=== PATIENT | female | born 1965 | race Caucasian/White ===

== ENCOUNTER 2020-10-21 10:04 | Observation (INO) | payer BC ==
[2020-10-21 10:22] VITALS: TEMP 97.5
[2020-10-21] MEDS ORDERED: FUROSEMIDE 10 MG/ML 4 ML VIAL IV STA (10:40)
--- NOTE | 2020-10-21 10:50 | ED ---
General Adult HPI - General Chief complaint: Shortness of Breath Stated complaint: SOB/Fluid in Lungs Time Seen by Provider: 10/21/20 10:23 Source: patient Mode of arrival: ambulatory Limitations: no limitations - History of Present Illness Initial comments: 55-year-old female with history of ovarian cancer presenting to the emergency department with a chief complaint of shortness of breath. States she has a tumor in the omentum. States she is extremity shortness of breath secondary to fluid accumulation. States that she underwent thoracentesis about one month ago and is scheduled to have another one. States her oncologist is from [facility]. However, states that she does not want to go back to the facility and came here instead. states they do not want any CT imaging of the chest and the oncologist recommended 40 mg IV Lasix twice a day. Patient will also need thoracocentesis. states she's had elevated heart rate over the last several days and states this is typical for her when she is ready to undergo thoracocentesis. Patient denies any other complaints. She is scheduled for next chemotherapy treatment on October 26. - Related Data Home Medications Medication Instructions Recorded Confirmed ALPRAZolam [Xanax] 0.5 mg PO BID PRN 10/21/20 10/21/20 Cyclobenzaprine [Flexeril] 10 mg PO DAILY PRN 10/21/20 10/21/20 DULoxetine HCL [Cymbalta] 60 mg PO DAILY 10/21/20 10/21/20 HYDROcodone/IBUPROFEN 7.5-200 1 tab PO QID PRN 10/21/20 10/21/20 [Vicoprofen 7.5-200 mg] Insulin Detemir [Levemir Flextouch] 10 units SQ DAILY 10/21/20 10/21/20 Lisinopril [Prinivil] 10 mg PO DAILY 10/21/20 10/21/20 Metoclopramide [Reglan] 10 mg PO ACHS 10/21/20 10/21/20 OLANZapine ODT [ZyPREXA ZYDIS] 5 mg PO DAILY 10/21/20 10/21/20 hydroCHLOROthiazide [Hydrodiuril] 25 mg PO DAILY 10/21/20 10/21/20 metFORMIN HCL ER [Glucophage XR] 500 mg PO DAILY 10/21/20 10/21/20 polyethylene glycoL 3350 [Miralax] 17 gm PO DAILY 10/21/20 10/21/20 Allergies Allergy/AdvReac Type Severity Reaction Status Date / Time No Known Allergies Allergy Verified 10/21/20 11:53 Review of Systems ROS Statement: Those systems with pertinent positive or pertinent negative responses have been documented in the HPI. ROS Other: All systems not noted in ROS Statement are negative. Past Medical History Past Medical History: Cancer Additional Past Medical History / Comment(s): ovarian CA History of Any Multi-Drug Resistant Organisms: None Reported Past Surgical History: Appendectomy, Cholecystectomy, Hernia Repair, Hysterectomy Additional Past Surgical History / Comment(s): Pleurex drain, paracentesis, septoplasty Past Psychological History: Anxiety, Depression Smoking Status: Former smoker Past Alcohol Use History: None Reported Past Drug Use History: None Reported General Exam Limitations: no limitations General appearance: alert, in no apparent distress Head exam: Present: atraumatic, normocephalic, normal inspection Eye exam: Present: normal appearance, PERRL, EOMI Pupils: Present: normal accommodation ENT exam: Present: normal exam, normal oropharynx, mucous membranes moist Neck exam: Present: normal inspection, full ROM. Absent: tenderness, lymphadenopathy Respiratory exam: Present: decreased breath sounds. Absent: respiratory distress, wheezes, rales Cardiovascular Exam: Present: regular rate, normal rhythm, systolic murmur GI/Abdominal exam: Present: soft. Absent: distended, tenderness, guarding, rebound Extremities exam: Present: normal inspection, full ROM, normal capillary refill, pedal edema (+2 pitting edema bilaterally) Back exam: Present: normal inspection, full ROM Neurological exam: Present: alert, oriented X3 Psychiatric exam: Present: normal affect, normal mood Skin exam: Present: warm, dry, intact, normal color Course Vital Signs 10/21/20 10:18 Temperature 97.5 F L Pulse Rate 126 H Respiratory 18 Rate Blood Pressure 104/72 O2 Sat by Pulse 95 Oximetry Medical Decision Making - Medical Decision Making 55-year-old female with history of ovarian cancer presenting to the emergency department with a chief complaint of shortness of breath. On physical examination, patient has decreased lung sounds bilaterally. She is tachycardic on arrival. Bilateral lower extremity edema. Patient will be started on 40 mg IV Lasix per request of the oncologist. Laboratory work is relatively unremarkable. Chest x-ray reveals moderate bilateral pleural effusion. Primary congestion also noted. I attempted to call her oncologist, , but I was not able to get in contact. I left a voicemail with a call by phone number. I will admit the patient for thoracocentesis and further medical management. Case discussed with Dr. Russell Admitting physician is who was requested by the family. Oncology consult Pulmonary consult - Lab Data Result diagrams: 10/21/20 11:56 10/21/20 11:56 Lab Results 10/21/20 10/21/20 10/21/20 Range/Units 11:56 11:56 11:56 WBC 3.8 (3.8-10.6) k/uL RBC 4.76 (3.80-5.40) m/uL Hgb 13.6 (11.4-16.0) gm/dL Hct 40.9 (34.0-46.0) % MCV 85.8 (80.0-100.0) fL MCH 28.6 (25.0-35.0) pg MCHC 33.3 (31.0-37.0) g/dL RDW 15.7 H (11.5-15.5) % Plt Count 240 (150-450) k/uL MPV 7.6 Neutrophils % 51 % Lymphocytes % 25 % Monocytes % 20 % Eosinophils % 0 % Basophils % 0 % Neutrophils # 1.9 (1.3-7.7) k/uL Lymphocytes # 0.9 L (1.0-4.8) k/uL Monocytes # 0.8 (0-1.0) k/uL Eosinophils # 0.0 (0-0.7) k/uL Basophils # 0.0 (0-0.2) k/uL PT 11.1 (9.0-12.0) sec INR 1.1 (<1.2) APTT 23.3 (22.0-30.0) sec Sodium 129 L (137-145) mmol/L Potassium 3.7 (3.5-5.1) mmol/L Chloride 92 L (98-107) mmol/L Carbon Dioxide 31 H (22-30) mmol/L Anion Gap 6 mmol/L BUN 14 (7-17) mg/dL Creatinine 0.59 (0.52-1.04) mg/dL Est GFR (CKD-EPI)AfAm >90 (>60 ml/min/1.73 sqM) Est GFR (CKD-EPI)NonAf >90 (>60 ml/min/1.73 sqM) Glucose 135 H (74-99) mg/dL Calcium 8.5 (8.4-10.2) mg/dL Total Bilirubin 0.4 (0.2-1.3) mg/dL AST 30 (14-36) U/L ALT 15 (4-34) U/L Alkaline Phosphatase 69 (38-126) U/L Troponin I (0.000-0.034) ng/mL Total Protein 6.4 (6.3-8.2) g/dL Albumin 3.0 L (3.5-5.0) g/dL 10/21/20 Range/Units 11:56 WBC (3.8-10.6) k/uL RBC (3.80-5.40) m/uL Hgb (11.4-16.0) gm/dL Hct (34.0-46.0) % MCV (80.0-100.0) fL MCH (25.0-35.0) pg MCHC (31.0-37.0) g/dL RDW (11.5-15.5) % Plt Count (150-450) k/uL MPV Neutrophils % % Lymphocytes % % Monocytes % % Eosinophils % % Basophils % % Neutrophils # (1.3-7.7) k/uL Lymphocytes # (1.0-4.8) k/uL Monocytes # (0-1.0) k/uL Eosinophils # (0-0.7) k/uL Basophils # (0-0.2) k/uL PT (9.0-12.0) sec INR (<1.2) APTT (22.0-30.0) sec Sodium (137-145) mmol/L Potassium (3.5-5.1) mmol/L Chloride (98-107) mmol/L Carbon Dioxide (22-30) mmol/L Anion Gap mmol/L BUN (7-17) mg/dL Creatinine (0.52-1.04) mg/dL Est GFR (CKD-EPI)AfAm (>60 ml/min/1.73 sqM) Est GFR (CKD-EPI)NonAf (>60 ml/min/1.73 sqM) Glucose (74-99) mg/dL Calcium (8.4-10.2) mg/dL Total Bilirubin (0.2-1.3) mg/dL AST (14-36) U/L ALT (4-34) U/L Alkaline Phosphatase (38-126) U/L Troponin I <0.012 (0.000-0.034) ng/mL Total Protein (6.3-8.2) g/dL Albumin (3.5-5.0) g/dL Disposition Clinical Impression: Pleural effusion Disposition: ADMITTED IP TO THIS HOSP Condition: Fair Is patient prescribed a controlled substance at d/c from ED?: No Referrals: Jolene Brian DO [Primary Care Provider] - 1-2 days Time of Disposition: 13:14
--- NOTE | 2020-10-21 11:24 | XR ---
EXAMINATION TYPE: XR chest 2V DATE OF EXAM: 10/21/2020 COMPARISON: NONE HISTORY: History of ovarian cancer with shortness of breath TECHNIQUE: Frontal and lateral views of the chest are obtained. FINDINGS: Left internal jugular Mediport catheter terminates at cavoatrial junction. There are modera te size bilateral pleural effusions and central vascular congestion. The cardiac silhouette size is silhouetted by the effusions. The osseous structures are intact. IMPRESSION: Moderate-sized bilateral pleural effusions and mild to moderate central vascular congest ion.
[2020-10-21 12:21] LABS: Basophils % (A) 0 %; Eosinophils % (A) 0 %; HCT 40.9 % (34.0-46.0); HGB 13.6 gm/dL (11.4-16.0); Lymphocytes # (A) 0.9 k/uL (1.0-4.8); Lymphocytes % (A) 25 %; MCH 28.6 pg (25.0-35.0); MCHC 33.3 g/dL (31.0-37.0); MCV 85.8 fL (80.0-100.0); Mean Platelet Volume 7.6; Monocytes # (A) 0.8 k/uL (0-1.0); Monocytes % (A) 20 %; Neutrophils # (A) 1.9 k/uL (1.3-7.7); Neutrophils % (A) 51 %; Platelet Count 240 k/uL (150-450); RBC 4.76 m/uL (3.80-5.40); RDW 15.7 % (11.5-15.5); WBC 3.8 k/uL (3.8-10.6)
[2020-10-21 12:34] LABS: INR 1.1 (<1.2); Partial Thromboplastin Time 23.3 sec (22.0-30.0); Prothrombin Time 11.1 sec (9.0-12.0)
[2020-10-21 12:40] LABS: ALT 15 U/L (4-34); AST 30 U/L (14-36); African American GFR (CKD) >90 (>60 ml/min/1.73 sqM); Alkaline Phosphatase 69 U/L (38-126); Anion Gap 6 mmol/L; Blood Urea Nitrogen 14 mg/dL (7-17); Calcium 8.5 mg/dL (8.4-10.2); Carbon Dioxide 31 mmol/L (22-30); Chloride 92 mmol/L (98-107); Glucose 135 mg/dL (74-99); Non-African American GFR(CKD) >90 (>60 ml/min/1.73 sqM); Potassium 3.7 mmol/L (3.5-5.1); Sodium 129 mmol/L (137-145); Total Bilirubin 0.4 mg/dL (0.2-1.3); Total Protein 6.4 g/dL (6.3-8.2)
[2020-10-21] MEDS ORDERED: NALOXONE 0.4 MG/ML 1 ML VIAL IV PRN (13:10)
[2020-10-21 13:40] VITALS: PULSE 123; RESP 20
--- NOTE | 2020-10-21 14:40 | US ---
EXAMINATION TYPE: US chest DATE OF EXAM: 10/21/2020 COMPARISON: Chest x-ray earlier today. CLINICAL HISTORY: Markings for thoracentesis by pulmonary staff. Shortness of breath. Abnormal chest x-ray. TECHNIQUE: Targeted ultrasound of the posterior lower bilateral hemithoraces EXAM MEASUREMENTS: Right Pleural Effusion pocket size: 12.6 cm Right skin surface to fluid distance: 3.3 cm Left Pleural Effusion pocket size: 7.3 cm Left skin surface to fluid distance: 3.5 cm Right side marked for possible thoracentesis outside the dept. Left side marked for possible thoracentesis outside the dept. Pulmonologists are able to review the images in the patient?s EMR. Moderate size right greater than left pleural effusions confirmed on images saved. IMPRESSIONS: As above.
[2020-10-21 15:04] VITALS: BP 110/80
--- NOTE | 2020-10-21 15:10 | P.CNPUL ---
History of Present Illness Consult date: 10/21/20 Requesting physician: Meño Sinha Reason for consult: pleural effusion Chief complaint: Shortness of breath History of present illness: This is a 55-year-old female with history of ovarian cancer, patient has been on chemotherapy, and she normally sees oncology out of town, at [facility]. Patient developed bilateral pleural effusions and she had thoracentesis done on both sides over a month ago. Her last thoracentesis was about a month ago on the right side, and supposedly she had 1 L of fluid to drain. Patient has peritoneal metastasis, and she has recurrent ascites, and she has required placement of a catheter her abdomen for intermittent daily drainage of fluid and her abdomen. Patient came into the ER today complaining of increased shortness of breath over the last few weeks, she has been developing swelling in her lower extremities. And her chest x-ray showed bilateral pleural effusions, right more so than left. Considering the effusion, I was asked to see the patient on consultation. I saw the patient in the ER, reviewed ultrasound at bedside, and proceeded to a right-sided thoracentesis, and I was able to drain about 1650 mL of slightly serosanguineous fluid from the right pleural space. Reviewed the ultrasound on the left side, the fluid seems to be small, and she definitely does not need immediate thoracentesis, but this could be considered in the f uture. Patient received Lasix by the ER physician, reviewed her labs, they're basically unremarkable except for a low sodium of 129. Rest of her labs including CBC, renal profile, liver profile are all normal. Review of Systems Constitutional: Weakness fatigue, some weight loss. HEENT: Negative. Pulmonary: As noted in HPI mostly shortness of breath, no cough, no wheezing, no chest pain, no hemoptysis. Cardiac: Negative. Patient does complain of intermittent swelling in her lower extremities. GI: Intermittent episodes of dysphagia and symptoms of epigastric discomfort after eating. Genitourinary: Negative. Musko skeletal: Negative. Skin: Negative. Neurologic: Negative. Hematologic/oncologic history of ovarian cancer with abdominal metastasis. Omental involvement. Extremities: Negative. Psychiatric: Negative. Patient is known to have history of generalized anxiety disorder. Neurologic: Negative. ROS unobtainable: due to mental status Past Medical History Past Medical History: Cancer Additional Past Medical History / Comment(s): ovarian CA History of Any Multi-Drug Resistant Organisms: None Reported Past Surgical History: Appendectomy, Cholecystectomy, Hernia Repair, Hysterectomy Additional Past Surgical History / Comment(s): Pleurex drain, paracentesis, septoplasty Past Psychological History: Anxiety, Depression Smoking Status: Former smoker Past Alcohol Use History: None Reported Past Drug Use History: None Reported Medications and Allergies Home Medications Medication Instructions Recorded Confirmed Type ALPRAZolam [Xanax] 0.5 mg PO BID PRN 10/21/20 10/21/20 History Cyclobenzaprine [Flexeril] 10 mg PO DAILY PRN 10/21/20 10/21/20 History DULoxetine HCL [Cymbalta] 60 mg PO DAILY 10/21/20 10/21/20 History HYDROcodone/IBUPROFEN 7.5-200 1 tab PO QID PRN 10/21/20 10/21/20 History [Vicoprofen 7.5-200 mg] Insulin Detemir [Levemir Flextouch] 10 units SQ DAILY 10/21/20 10/21/20 History Lisinopril [Prinivil] 10 mg PO DAILY 10/21/20 10/21/20 History Metoclopramide [Reglan] 10 mg PO ACHS 10/21/20 10/21/20 History OLANZapine ODT [ZyPREXA ZYDIS] 5 mg PO DAILY 10/21/20 10/21/20 History hydroCHLOROthiazide [Hydrodiuril] 25 mg PO DAILY 10/21/20 10/21/20 History metFORMIN HCL ER [Glucophage XR] 500 mg PO DAILY 10/21/20 10/21/20 History polyethylene glycoL 3350 [Miralax] 17 gm PO DAILY 10/21/20 10/21/20 History Allergies Allergy/AdvReac Type Severity Reaction Status Date / Time No Known Allergies Allergy Verified 10/21/20 11:53 Physical Exam Vitals: Vital Signs Temp Pulse Resp BP Pulse Ox 10/21/20 13:30 123 H 20 125/84 96 10/21/20 12:30 122 H 20 115/67 97 10/21/20 10:18 97.5 F L 126 H 18 104/72 95 Intake and Output 10/20/20 10/21/20 10/21/20 22:59 06:59 14:59 Other: Weight 88.451 kg Physical Exam: Revealed 55-year-old female on 2 L nasal cannula, in no distress. She is noted to be a bit anxious. Head: Atraumatic, normocephalic. HEENT:[Neck is supple.] [No neck masses.] [No thyromegaly.] [No JVD.] Chest: Symmetrical chest expansion, dullness at the bases especially at the right base, diminished breath sounds at the bases. Cardiac Exam: Distant S1 and S2, tachycardic, no S3 gallop, no murmur. Abdomen: [Obese, Soft, nontender, no megaly, no rebound, no guarding, normal bowel sounds.] Peritoneal catheter noted in the right upper quadrant area. Extremities: [No clubbing, trace of bipedal edema, no cyanosis.] Good pulses bilaterally. Neurological Exam: [No focal neurologic deficit.] Alert and oriented 3. Psychiatric: Anxious mood, normal affect, and normal mental status examination. Skin: No rashes. Musculoskeletal: No deformities and no limitation in range of motion Results - Laboratory Findings CBC and BMP: 10/21/20 11:56 10/21/20 11:56 PT/INR, D-dimer PT 11.1 sec (9.0-12.0) 10/21/20 11:56 INR 1.1 (<1.2) 10/21/20 11:56 Abnormal lab findings: Abnormal Labs 10/21/20 10/21/20 11:56 11:56 RDW 15.7 H Lymphocytes # 0.9 L Sodium 129 L Chloride 92 L Carbon Dioxide 31 H Glucose 135 H Albumin 3.0 L - Diagnostic Findings Chest x-ray: image reviewed (Bilateral pleural effusions) Additional studies: Ultrasound of the chest showed bilateral pleural effusions right more so than left. Assessment and Plan Assessment: Impression: Bilateral pleural effusions secondary to metastatic ovarian cancer. Ascites secondary to metastatic ovarian cancer. History of ovarian cancer. Patient is on chemotherapy. Type 2 diabetes. History of depression. Generalized anxiety disorder. Benign essential hypertension. Recommendation: Right-sided thoracentesis was performed. 1650 mL of fluid was drained. Fluid was sent for different diagnostic studies Patient to be seen by oncology however as far as I'm concerned, this could also be done on outpatient basis. We'll clear the patient for discharge planning Follow-up with me on outpatient basis and the left pleural effusion could be addressed on outpatient basis. Again clear for discharge planning as far as I'm concerned. Time with Patient: Greater than 30
--- NOTE | 2020-10-21 15:10 | XR ---
EXAMINATION TYPE: XR chest 1V portable DATE OF EXAM: 10/21/2020 CLINICAL HISTORY: Post right-sided thoracentesis. TECHNIQUE: Single AP portable upright view of the chest is obtained. COMPARISON: Chest x-ray from earlier today FINDINGS: Stable Left internal jugular Mediport catheter . Improved right-sided pleural effusion afte r thoracentesis. No pneumothorax noted. Stable moderate-sized left pleural effusion. Chronic parenchy mal changes and mild to moderate central vascular congestion on current study. Osseous structures are intact. Cardiac silhouette size is stable and upper limits of normal. Persistent low lung volumes. IMPRESSION: Improved right-sided pleural effusion after thoracentesis. No pneumothorax. New developi ng mild to moderate central vascular congestion.
[2020-10-21] MEDS ORDERED: CYCLOBENZAPRINE 10 MG TAB PO PRN (15:49)
[2020-10-21] MEDS ORDERED: HYDROCODONE PO PRN (15:49)
[2020-10-21] MEDS ORDERED: ALPRAZolam 0.5 MG TAB PO PRN (15:49)
[2020-10-21] MEDS ORDERED: IBUPROFEN PO PRN (15:49)
--- NOTE | 2020-10-21 16:31 | P.HPIM ---
History of Present Illness H&P Date: 10/21/20 Chief Complaint: Shortness of breath History of presenting complaint: This is a pleasant 55-year-old patient who follows with family doctor Dr. Jolene Thompson. Chronic stable medical conditions include constipation due to decreased oral intake, diabetes patient has stopped taking her metformin because of decreased oral intake, depression and anxiety, hypertension, home oxygen 2 L from pulmonary effusion. Patient was diagnosed with ovarian cancer back in 2017. Has been receiving chemotherapy. Her oncologist is out of [facility]. The cancer spread intra-abdominally including the omentum. And does not known to have any outside spread. Patient's appetite is not good. Normally has a bowel movement everyday. Fever no chills. She has scheduled thoracentesis. Her oncologist is , out of [facility]. Patient has been getting more short of breath. And lower extremity edema. She is not too happy with the care at [facility] and also switching physicians here. Though not right away. Pulmonary was consulted for thoracentesis. They did earlier remove 1-1/2 L from the right side and another 5 50 mL were removed from the Thora-vent on the left side. Patient breathing is better. Patient's daughter at the bedside. No fever no chills. Review of systems: GEN.: Tired, decreased appetite EYES: None HEENT: None NECK: None RESPIRATORY: Shortness of breath. No cough CARDIOVASCULAR: None GASTROINTESTINAL: None GENITOURINARY: None MUSCULOSKELETAL: None LYMPHATICS: None HEMATOLOGICAL: None PSYCHIATRY: [Anxiety depression, controlled NEUROLOGICAL: None Past medical history to include: Constipation, diabetes type 2, off Glucophage, hypertension, anxiety depression Social history: Lives alone. Former smoker. No alcohol. Family history: Reviewed, noncontributory to presentation Physical examination: VITAL SIGNS: 97.5, 120, 18, 104/72, 95% room air GENERAL: BMI 31.5, reclining in bed, some shortness of breath. EYES: Pupils equal. Conjunctiva normal. HEENT: External appearance of nose and ears normal, oral cavity grossly normal. NECK: JVD not raised; masses not palpable. HEART: First and second heart sounds are normal; edema present. LUNGS:[ Respiratory rate increased and decreased breath sounds. ABDOMEN: Soft, nontender, liver spleen not palpable, no masses palpable. PSYCH: Alert and oriented x3; mood and affect anxiousl. NEUROLOGICAL: Cranial nerves grossly intact; no facial asymmetry, power and sensation grossly intact. LYMPHATICS: No lymph nodes palpable in the axilla and neck INVESTIGATIONS, reviewed in the clinical context: WBC 3.8 hemoglobin 13.6 platelets 240 sodium 129 potassium 3.7 creatinine 0.59 albumin 3 Chest x-ray film personally reviewed by me-bilateral pleural effusion Ultrasound chest: Moderate size right greater than left pleural effusion Assessment and plan: -Bilateral pleural effusion, right greater than left, acute on chronic, recurrent secondary to metastatic ovarian cancer, symptomatic. Patient is short of breath. Right thoracentesis 1.5 L, and 500 mL removed from the left effusion we are Thora-vent. Seen by pulmonary Dr. Durán -Metastatic ovarian cancer. Patient getting chemotherapy. Being followed by oncologist at [facility]. -Chronic medical debility from metastatic ovarian cancer -Anorexia from underlying malignancy -Anxiety depression otherwise specified Continue with Xanax, Cymbalta, Zyprexa -Diabetes mellitus type 2 Patient not taking her metformin because of decreased oral intake. Follow Accu- Cheks -Essential hypertension Prinivil Care was discussed with patient daughter the bedside. Home medications resumed. Patient feeling better. Possibly discharge later today remains stable. Patient follow-up with the family doctor and oncologist. Past Medical History Past Medical History: Cancer Additional Past Medical History / Comment(s): ovarian CA History of Any Multi-Drug Resistant Organisms: None Reported Past Surgical History: Appendectomy, Cholecystectomy, Hernia Repair, Hysterectomy Additional Past Surgical History / Comment(s): Pleurex drain, paracentesis, septoplasty Past Psychological History: Anxiety, Depression Smoking Status: Former smoker Past Alcohol Use History: None Reported Past Drug Use History: None Reported Medications and Allergies Home Medications Medication Instructions Recorded Confirmed Type ALPRAZolam [Xanax] 0.5 mg PO BID PRN 10/21/20 10/21/20 History Cyclobenzaprine [Flexeril] 10 mg PO DAILY PRN 10/21/20 10/21/20 History DULoxetine HCL [Cymbalta] 60 mg PO DAILY 10/21/20 10/21/20 History HYDROcodone/IBUPROFEN 7.5-200 1 tab PO QID PRN 10/21/20 10/21/20 History [Vicoprofen 7.5-200 mg] Insulin Detemir [Levemir Flextouch] 10 units SQ DAILY 10/21/20 10/21/20 History Lisinopril [Prinivil] 10 mg PO DAILY 10/21/20 10/21/20 History Metoclopramide [Reglan] 10 mg PO ACHS 10/21/20 10/21/20 History OLANZapine ODT [ZyPREXA ZYDIS] 5 mg PO DAILY 10/21/20 10/21/20 History hydroCHLOROthiazide [Hydrodiuril] 25 mg PO DAILY 10/21/20 10/21/20 History metFORMIN HCL ER [Glucophage XR] 500 mg PO DAILY 10/21/20 10/21/20 History polyethylene glycoL 3350 [Miralax] 17 gm PO DAILY 10/21/20 10/21/20 History Allergies Allergy/AdvReac Type Severity Reaction Status Date / Time No Known Allergies Allergy Verified 10/21/20 11:53 Physical Exam Vitals: Vital Signs Temp Pulse Resp BP Pulse Ox 10/21/20 15:00 123 H 20 110/80 96 10/21/20 13:30 123 H 20 125/84 96 10/21/20 12:30 122 H 20 115/67 97 10/21/20 10:18 97.5 F L 126 H 18 104/72 95 Intake and Output 10/21/20 10/21/20 10/21/20 06:59 14:59 22:59 Output Total 550 Balance -550 Output: Chest Tube Drainage 550 Pleural Catheter Right 550 Other: Weight 88.451 kg Results CBC & Chem 7: 10/21/20 11:56 10/21/20 11:56 Labs: Abnormal Lab Results - Last 24 Hours (Table) 10/21/20 10/21/20 Range/Units 11:56 11:56 RDW 15.7 H (11.5-15.5) % Lymphocytes # 0.9 L (1.0-4.8) k/uL Sodium 129 L (137-145) mmol/L Chloride 92 L (98-107) mmol/L Carbon Dioxide 31 H (22-30) mmol/L Glucose 135 H (74-99) mg/dL Albumin 3.0 L (3.5-5.0) g/dL
--- NOTE | 2020-10-21 16:44 | P.DS ---
Providers Date of admission: 10/21/20 13:25 Expected date of discharge: 10/21/20 Attending physician: Meño Sinha Consults: 10/21/20 13:11 Consult Physician Routine Consulting Provider: Mishel Durán Consult Reason/Comments: Pleural effusion Do you want consulting provider notified?: Yes Consult Physician Routine Consulting Provider: Aguila Guerrier Consult Reason/Comments: Ovarian cancer, pleural effusion Do you want consulting provider notified?: Yes Primary care physician: Jolene Brian [facility] Course: Chief Complaint: Shortness of breath History of presenting complaint: This is a pleasant 55-year-old patient who follows with family doctor Dr. Jolene Thompson. Chronic stable medical conditions include constipation due to decreased oral intake, diabetes patient has stopped taking her metformin because of decreased oral intake, depression and anxiety, hypertension, home oxygen 2 L from pulmonary effusion. Patient was diagnosed with ovarian cancer back in 2017. Has been receiving chemotherapy. Her oncologist is out of [facility]. The cancer spread intra-abdominally including the omentum. And does not known to have any outside spread. Patient's appetite is not good. Normally has a bowel movement everyday. Fever no chills. She has scheduled thoracentesis. Her oncologist is , out of [facility]. Patient has been getting more short of breath. And lower extremity edema. She is not too happy with the care at [facility] and also switching physicians here. Though not right away. Pulmonary was consulted for thoracentesis. They did earlier remove 1-1/2 L from the right side and another 5 50 mL were removed from the Thora-vent on the left side. Patient breathing is better. Patient's d aughter at the bedside. No fever no chills. Patient breathing much better. Keen to go home. She'll follow-up with her oncologist and PCP. Questions were answered Consultation: Dr. Durán from pulmonary Past medical history to include: Constipation, diabetes type 2, off Glucophage, hypertension, anxiety depression Social history: Lives alone. Former smoker. No alcohol. Family history: Reviewed, noncontributory to presentation Physical examination: VITAL SIGNS: 97.5, 120, 18, 104/72, 95% room air GENERAL: BMI 31.5, reclining in bed, some shortness of breath. EYES: Pupils equal. Conjunctiva normal. HEENT: External appearance of nose and ears normal, oral cavity grossly normal. NECK: JVD not raised; masses not palpable. HEART: First and second heart sounds are normal; edema present. LUNGS:[ Respiratory rate increased and decreased breath sounds. ABDOMEN: Soft, nontender, liver spleen not palpable, no masses palpable. PSYCH: Alert and oriented x3; mood and affect anxiousl. NEUROLOGICAL: Cranial nerves grossly intact; no facial asymmetry, power and sensation grossly intact. LYMPHATICS: No lymph nodes palpable in the axilla and neck INVESTIGATIONS, reviewed in the clinical context: WBC 3.8 hemoglobin 13.6 platelets 240 sodium 129 potassium 3.7 creatinine 0.59 albumin 3 Chest x-ray film personally reviewed by me-bilateral pleural effusion Ultrasound chest: Moderate size right greater than left pleural effusion Assessment and plan: -Bilateral pleural effusion, right greater than left, acute on chronic, recurrent secondary to metastatic ovarian cancer, symptomatic. Patient is short of breath. Right thoracentesis 1.5 L, and 500 mL removed from the left effusion we are Thora-vent. Seen by pulmonary Dr. Durán -Metastatic ovarian cancer. Patient getting chemotherapy. Being followed by oncologist at [facility]. -Chronic hypoxic respiratory failure, on 2 L of oxygen at home -Chronic medical debility from metastatic ovarian cancer -Anorexia from underlying malignancy -Anxiety depression otherwise specified Continue with Xanax, Cymbalta, Zyprexa -Diabetes mellitus type 2 Patient not taking her metformin because of decreased oral intake. Follow [facility]- [facility] -Essential hypertension Prinivil Disposition: Home Plan - Discharge Summary New Discharge Prescriptions: Continue metFORMIN HCL ER [Glucophage XR] 500 mg PO DAILY Lisinopril [Prinivil] 10 mg PO DAILY ALPRAZolam [Xanax] 0.5 mg PO BID PRN PRN Reason: Anxiety polyethylene glycoL 3350 [Miralax] 17 gm PO DAILY Insulin Detemir [Levemir Flextouch] 10 units SQ DAILY Metoclopramide [Reglan] 10 mg PO ACHS OLANZapine ODT [ZyPREXA Zydis] 5 mg PO DAILY hydroCHLOROthiazide [Hydrodiuril] 25 mg PO DAILY HYDROcodone/IBUPROFEN 7.5-200 [Vicoprofen 7.5-200 mg] 1 tab PO QID PRN PRN Reason: Pain Cyclobenzaprine [Flexeril] 10 mg PO DAILY PRN PRN Reason: Muscle Spasm DULoxetine HCL [Cymbalta] 60 mg PO DAILY Discharge Medication List ALPRAZolam [Xanax] 0.5 mg PO BID PRN 10/21/20 [History] Cyclobenzaprine [Flexeril] 10 mg PO DAILY PRN 10/21/20 [History] DULoxetine HCL [Cymbalta] 60 mg PO DAILY 10/21/20 [History] HYDROcodone/IBUPROFEN 7.5-200 [Vicoprofen 7.5-200 mg] 1 tab PO QID PRN 10/21/20 [History] Insulin Detemir [Levemir Flextouch] 10 units SQ DAILY 10/21/20 [History] Lisinopril [Prinivil] 10 mg PO DAILY 10/21/20 [History] Metoclopramide [Reglan] 10 mg PO ACHS 10/21/20 [History] OLANZapine ODT [ZyPREXA Zydis] 5 mg PO DAILY 10/21/20 [History] hydroCHLOROthiazide [Hydrodiuril] 25 mg PO DAILY 10/21/20 [History] metFORMIN HCL ER [Glucophage XR] 500 mg PO DAILY 10/21/20 [History] polyethylene glycoL 3350 [Miralax] 17 gm PO DAILY 10/21/20 [History] Follow up Appointment(s)/Referral(s): oncologistdr [Other] - 1 Week Jolene Brian DO [Primary Care Provider] - 1-2 days Activity/Diet/Wound Care/Special Instructions: Bilateral OVIDIO stockings
[2020-10-21] MEDS ORDERED: METOCLOPRAMIDE 10 MG TAB PO SCH (17:30)
[2020-10-21 18:04] LABS: Appearance,BF Cloudy; Nucleated Cells, Body Fluid 900 /uL; RBC, Body Fluid 9600 /uL
[2020-10-21 18:05] LABS: Mononuclear WBC,Body Fluid 93 %; Polynuclear WBC,Body Fluid 7 %; Total Cells Counted,Body Fluid 100
--- NOTE | 2020-10-21 20:04 | OP ---
OPERATIVE REPORT PROCEDURE: Right-sided thoracentesis. PREOPERATIVE DIAGNOSIS: Right pleural effusion, history of ovarian cancer, Meig's syndrome. POSTOP DIAGNOSIS: Right pleural effusion, history of ovarian cancer, Meig's syndrome. ANESTHESIA USED: 2 mL of 1% lidocaine. DESCRIPTION OF PROCEDURE: The patient was placed in a sitting upright position, the area of the fluid was localized with ultrasound guidance. The marking was done at the 8th intercostal space and tip of the scapula. Then, the area was prepared in a sterile fashion and drapes were applied. The area was locally anesthetized, and a 26-gauge needle was inserted at the same site and advanced into the pleural space until the fluid was localized. Then a small tiny incision was made, and a standard thoracentesis catheter was used, and a needle was inserted at the same site, advanced into the pleural space and as we entered the pleural space I believe there was kinking in the catheter, there was no drainage coming out from the catheter. Then, another set was used, the same site was used. The needle and catheter were advanced at the same site into the pleural space, fluid was obtained and as soon as the fluid was obtained, the catheter was advanced out of the needle into the pleural space and the needle was pulled out of the pleural space. Roughly 1650 mL of slightly serosanguineous fluid removed from the right pleural space. The procedure was well tolerated, no evidence of any immediate complications. Chest x- ray was ordered, and is pending at the time of dictation. MMODL / IJN: [id number] /
[2020-10-21] MEDS ORDERED: FUROSEMIDE 10 MG/ML 4 ML VIAL IV SCH (21:00)
[2020-10-22 03:30] LABS: Glucose, BF Source Pleural Fluid; Glucose, Body Fluid 91 mg/dL; LDH, Body Fluid Source Pleural Fluid; Total Protein, Body Fluid 2920 mg/dL
[2020-10-22] MEDS ORDERED: INSULIN DETEMIR (LEVEMIR) 100 UNIT/ML SYR SQ SCH (07:00)
[2020-10-22] MEDS ORDERED: polyethylene glycoL 3350 17 GM POWD.PACK PO SCH (09:00)
[2020-10-22] MEDS ORDERED: hydroCHLOROthiazide 25 MG TAB PO SCH (09:00)
[2020-10-22] MEDS ORDERED: OLANZapine ODT 5 MG TAB PO SCH (09:00)
[2020-10-22] MEDS ORDERED: metFORMIN 500 MG TAB PO SCH (09:00)
[2020-10-22] MEDS ORDERED: lisinopriL 10 MG TAB PO SCH (09:00)
[2020-10-22] MEDS ORDERED: DULoxetine HCL 60 MG CAPSULE.DR PO SCH (09:00)
== END 2020-10-21 18:27 | disposition home or self-care (01) ==
LOC: EC 10:04 → 5NMEDONC 13:25
PROVIDERS: ADMIT Hospitalist; ATTEND Hospitalist
DX: J90 Pleural effusion, not elsewhere classified (principal); C56.9 Malignant neoplasm of unspecified ovary; C78.6 Secondary malignant neoplasm of retroperitoneum and peritoneum; E11.9 Type 2 diabetes mellitus without complications; F41.1 Generalized anxiety disorder; I10 Essential (primary) hypertension; J96.11 Chronic respiratory failure with hypoxia; Z79.4 Long term (current) use of insulin; Z79.899 Other long term (current) drug therapy; Z85.43 Personal history of malignant neoplasm of ovary; Z87.891 Personal history of nicotine dependence; Z90.710 Acquired absence of both cervix and uterus
CPT/HCPCS: 32554; 99285; 96374; 96375; 36415; 93005; 87798 ×3; 87496; 87498; 87529; 88305; 80053; 89050; 84484; 85025; 85610; 85730; 88342; 87252; 87502; 87634; 88341; 87070; 87205; 87075; 87116; 87102; 87206; 82945; 83615; 84157; 71045; 71046; 76604; G0378; J1940; J1642

== ENCOUNTER → 2020-10-27 | Outpatient (CLI) | payer BC ==
--- NOTE | 2020-10-27 11:24 | US ---
EXAMINATION TYPE: US chest DATE OF EXAM: 10/27/2020 COMPARISON: US & Xray CLINICAL HISTORY: J90 Pleural effusion. TECHNIQUE: Targeted ultrasound of the posterior lower bilateral hemithoraces EXAM MEASUREMENTS: Right Pleural Effusion pocket size: 13.6 cm Right skin surface to fluid distance: 2.1 cm Left Pleural Effusion pocket size: 8.1 cm Left skin surface to fluid distance: 1.7 cm Right side marked for possible thoracentesis outside the dept. Left side marked for possible thoracentesis outside the dept. Pulmonologists are able to review the images in the patient?s EMR. IMPRESSIONS: 1. Bilateral pleural effusions
== END | disposition home or self-care (01) ==
LOC: RADUSWWP 10:58
PROVIDERS: ATTEND Internal Medicine
DX: J90 Pleural effusion, not elsewhere classified (principal)
CPT/HCPCS: 76604

== ENCOUNTER → 2020-11-02 | Outpatient (CLI) | payer BC ==
[2020-11-02 13:51] LABS: Anisocytosis Slight; Basophils % (A) 0 %; Eosinophils % (A) 0 %; HCT 41.7 % (34.0-46.0); HGB 13.4 gm/dL (11.4-16.0); Lymphocytes # (A) 1.1 k/uL (1.0-4.8); Lymphocytes % (A) 16 %; MCH 28.5 pg (25.0-35.0); MCHC 32.2 g/dL (31.0-37.0); MCV 88.5 fL (80.0-100.0); Mean Platelet Volume 7.3; Monocytes # (A) 0.5 k/uL (0-1.0); Monocytes % (A) 8 %; Neutrophils # (A) 5.1 k/uL (1.3-7.7); Neutrophils % (A) 75 %; Platelet Count 193 k/uL (150-450); RBC 4.71 m/uL (3.80-5.40); RDW 16.7 % (11.5-15.5); WBC 6.8 k/uL (3.8-10.6)
[2020-11-02 14:04] LABS: African American GFR (CKD) >90 (>60 ml/min/1.73 sqM); Anion Gap 7 mmol/L; Blood Urea Nitrogen 14 mg/dL (7-17); Carbon Dioxide 24 mmol/L (22-30); Chloride 98 mmol/L (98-107); Glucose 162 mg/dL (74-99); Non-African American GFR(CKD) >90 (>60 ml/min/1.73 sqM); Potassium 3.5 mmol/L (3.5-5.1); Sodium 129 mmol/L (137-145)
[2020-11-02 14:15] LABS: INR 1.1 (<1.2); Partial Thromboplastin Time 22.2 sec (22.0-30.0); Prothrombin Time 11.2 sec (9.0-12.0)
== END | disposition home or self-care (01) ==
LOC: LABPAT 13:21
PROVIDERS: ATTEND Surgery
DX: Z01.812 Encounter for preprocedural laboratory examination (principal); Z20.822 Contact with and (suspected) exposure to COVID-19; J90 Pleural effusion, not elsewhere classified; R00.0 Tachycardia, unspecified; R94.31 Abnormal electrocardiogram [ECG] [EKG]
CPT/HCPCS: 80051; 82565; 82947; 84520; 85025; 85610; 85730; 93005; U0003; U0005

== ENCOUNTER → 2020-11-02 | Outpatient (CLI) | payer BC ==
--- NOTE | 2020-11-02 14:06 | XR ---
EXAMINATION TYPE: XR chest 2V DATE OF EXAM: 11/02/2020 COMPARISON: Chest x-ray October 21, 2020 HISTORY: Presurgical study. TECHNIQUE: Frontal and lateral views of the chest are obtained. FINDINGS: Stable left internal jugular Mediport catheter. Increased silhouetting of the right and lef t heart borders. Slightly More prominent moderate size bilateral pleural effusions. Improved centra l vascular congestion. Exaggerated kyphosis near thoracolumbar junction redemonstrated. Cholecystecto my clips again seen. IMPRESSION: Moderate bilateral pleural effusions stable or slightly more prominent versus prior. Imp roved central vascular congestion noted.
== END | disposition home or self-care (01) ==
LOC: RADXRMAIN 13:48
PROVIDERS: ATTEND Surgery
DX: J90 Pleural effusion, not elsewhere classified (principal); R09.89 Other specified symptoms and signs involving the circulatory and respiratory systems
CPT/HCPCS: 71046

== ENCOUNTER 2020-11-05 07:59 | Day surgery (SDC) | payer BC ==
[2020-11-03 10:03] VITALS: BMI 31.4
[~2020-11-05 07:59] MED LIST: DEXAMETHASONE SOD PHOSPHATE 4 MG/ML 1 ML VIAL IV ONE; HYDROmorphone 0.5 MG/0.5 ML SYRINGE IVP PRN; LACTATED RINGERS 1,000 ML IV SCH; LIDOCAINE 1% (10MG/ML) FOR IV START INTRADERMA PRN; MIDAZOLAM 2 MG/2 ML VIAL IV PRN; ONDANSETRON 4 MG/2 ML VIAL IVP ONE
[2020-11-05 08:30] VITALS: TEMP 97.3
[2020-11-05 08:56] LABS: Glucose,Whole Blood 135 mg/dL (75-99)
[2020-11-05] MEDS ORDERED: LIDOCAINE 1% INJ 10MG/ML (20 ML MDV) ONE (08:59)
[2020-11-05] MEDS ORDERED: PROPOFOL 10 MG/ML 20 ML VIAL IV ONE (08:59)
[2020-11-05] MEDS ORDERED: MIDAZOLAM 2 MG/2 ML VIAL ONE (08:59)
[2020-11-05] MEDS ORDERED: KETAMINE 10 MG/ML 20 ML VIAL ONE (08:59)
[2020-11-05] MEDS ORDERED: fentaNYL (PF) 50 MCG/ML 2 ML AMP ONE (08:59)
[2020-11-05] MEDS ORDERED: LIDOCAINE 1% INJ 10MG/ML (20 ML MDV) SQ ONE ×2 (09:12)
--- NOTE | 2020-11-05 10:44 | OP ---
OPERATIVE REPORT DATE OF SURGERY: 11/05/2020 SURGEON: Dr. Palmer Saucedo. ANESTHESIA: Local with IV sedation. PREOPERATIVE DIAGNOSIS: Metastatic ovarian carcinoma with large bilateral pleural effusion. POSTOPERATIVE DIAGNOSIS: Metastatic ovarian carcinoma with large bilateral pleural effusion. PROCEDURE: Insertion of bilateral PleurX catheter. DESCRIPTION OF PROCEDURE: The patient was brought to the operating room and put in a semi-Pascual position. She was given IV sedation. She received 2 grams of cefazolin intravenously. The chest and abdomen were prepped and draped using ChloraPrep. A proper timeout was conducted. We started on the right side. With the finding needle, we confirmed access to the large right pleural effusion. Patient had a previous peritoneal catheter in the right upper quadrant. We planned a tract lateral to that catheter. An angio catheter was put in the right pleural cavity, through which a guidewire was inserted. Subsequently the tunnel from the right upper quadrant to the insertion site at the level of the chest was anesthetized with lidocaine 1%. A small counter incision was made and a PleurX catheter tunneled from the right upper quadrant to that insertion site. Subsequently dilator then a peel-away sheath were inserted over the guidewire, than the dilator and wire were removed and the PleurX catheter was pushed through the peel-away sheath into the right pleural cavity. The peel-away sheath was removed. We established good patency by draining 2 L from the right chest. The catheter was affixed to the skin with silk suture. The insertion site incision of the chest was closed with one Vicryl 4-0 subcutaneously and Dermabond. The same exact procedure was followed on the left side, with successful access of the left-sided effusion and insertion of a left-sided PleurX catheter that was tunnelled to the left upper quadrant. A total of one liter was drained from the left and 2 liters were drained from the right of criselda-colored fluid. Patient tolerated procedure and was transferred to the recovery room in stable condition. MMODL / IJN: [id number] / MTDD
[2020-11-05 10:48] VITALS: PULSE 113
[2020-11-05] MEDS ORDERED: HYDROcodone/APAP 7.5-325MG 1 EACH TAB PO ONE ×2 (10:58→11:02)
[2020-11-05] MEDS ORDERED: HYDROcodone/APAP 7.5-325MG 1 EACH TAB ONE (11:01)
[2020-11-05 11:07] VITALS: BP 119/91; RESP 20
--- NOTE | 2020-11-05 11:19 | XR ---
EXAMINATION TYPE: XR chest 1V portable DATE OF EXAM: 11/05/2020 COMPARISON: Chest x-ray 3 days ago HISTORY: Post pleural catheter placement. TECHNIQUE: Single AP portable frontal upright view of the chest is obtained. FINDINGS: Stable left internal jugular Mediport catheter. New pleural drainage catheter extending to wards left lung apex with small left apical pneumothorax that has slight lateral basilar component me asure 5-10%. Small residual left pleural fluid component noted. There is new right basilar pleural dr ainage catheter with adjacent tiny right pneumothorax measuring suspected under 5%. Improved right-si ded effusion. Adjacent subcutaneous emphysema. Cardiac silhouette size stable and within normal limits. Osseous structures intact. Cholecystectomy c lips incidentally noted. IMPRESSION: New right basilar and left apical pleural drainage catheters. Improved pleural effusions bilaterally. Some residual small left basilar pleural effusion noted. Tiny right lateral basilar pne umothorax estimated under 5%. Small to tiny left-sided pneumothorax estimated at 5-10%.
== END 2020-11-05 11:49 | disposition home or self-care (01) ==
LOC: OR 07:59
PROVIDERS: ATTEND Surgery
DX: C56.9 Malignant neoplasm of unspecified ovary (principal); Z87.891 Personal history of nicotine dependence; C78.2 Secondary malignant neoplasm of pleura; F41.9 Anxiety disorder, unspecified; F42.9 Obsessive-compulsive disorder, unspecified; E11.9 Type 2 diabetes mellitus without complications; Z99.81 Dependence on supplemental oxygen; Z79.899 Other long term (current) drug therapy; Z79.84 Long term (current) use of oral hypoglycemic drugs
CPT/HCPCS: 71045; 32557; J2250; J1100; J0690; J2405; J2001; J3010; J2704